=== PATIENT | female | born 1995 | race Caucasian/White ===

== ENCOUNTER 2018-05-10 09:34 | Emergency (ER) | payer OTHER ==
[~2018-05-10] VITALS: Ht 154.9 cm; Wt 94.3 kg
[~2018-05-10 09:34] MED LIST: ALBUTEROL SULF8.5 GM IH; ASPIR-TRIN325 MG PO; BIRTH CONTROL PO; KEFLEX500 MG PO; MOTRIN800 MG PO; NAPROSYN500 MG PO; NOHOMEMEDS; QUASENSE1 EACH PO; VENTOLIN17 GM IH; ZOFRAN ODT4 MG PO; ZOFRAN4 MG PO
[2018-05-10 10:36] LABS: BASOPHIL (%) 0.5 % (0-1); EOSINOPHIL (%) 1.7 % (0-5); EOSINOPHIL COUNT 0.2 K/uL (0-0.3); HEMATOCRIT 41.3 % (36.0-46.0); HEMOGLOBIN 13.9 G/DL (11.9-15.5); IMMATURE GRANULOCYTE (%) 0.3 % (0.0-0.7); LYMPHOCYTE (%) 26.1 % (15-42); LYMPHOCYTE COUNT 2.3 K/uL (1.0-2.8); MCH 28.4 PG (29.0-34.0); MCHC 33.7 G/DL (30.0-36.0); MCV 84.3 FL (83-99); MONOCYTE (%) 5.5 % (3-12); MONOCYTE COUNT 0.5 K/uL (0-0.8); NEUTROPHIL (%) 65.9 % (45-76); NEUTROPHIL COUNT 5.7 K/uL (1.8-6.4); PLATELET COUNT 306 K/uL (156-360); RBC DIS.WIDTH-CV 12.6 % (11.8-14.6); RBC DIS.WIDTH-SD 38.1 % (39-53); WHITE BLOOD COUNT 8.7 K/uL (4.1-10.2)
[2018-05-10 10:48] LABS: ALBUMIN 4.3 g/dL (3.2-4.8); CHLORIDE 106 mEq/L (99-109); POTASSIUM 4.4 mEq/L (3.7-5.4); SODIUM 139 mEq/L (136-147)
[2018-05-10 10:50] LABS: GLUCOSE 105 mg/dL (70-99); TOTAL PROTEIN 7.8 g/dL (6.4-8.3)
[2018-05-10 10:52] LABS: TOTAL BILIRUBIN 0.3 mg/dL (0.0-1.0)
[2018-05-10 10:54] LABS: ALKALINE PHOSPHATASE 78 IU/L (3-129); CREATININE 0.7 mg/dL (0.6-1.3); GFR ESTIMATE (CALCULATED) > 59 mL/min/
[2018-05-10 10:55] LABS: UREA NITROGEN (BUN) 13 mg/dL (9-23)
[2018-05-10 10:56] LABS: AST (GOT) 19 IU/L (2-34)
[2018-05-10 10:57] LABS: ALT (GPT) 26 IU/L (3-49); LIPASE 20 U/L (1.0-51.0)
[2018-05-10 11:04] LABS: QUANTITATIVE HCG < 4.0 MIU/ML
[2018-05-10 11:12] LABS: APPEARANCE SL.HAZY ((CLEAR)); BILIRUBIN NEGATIVE; BLOOD NEGATIVE; COLOR YELLOW ((YELLOW)); GLUCOSE (STRIP) NEGATIVE; KETONES NEGATIVE; LEUKOCYTES TRACE; NITRITE NEGATIVE; PROTEIN (STRIP) NEGATIVE; UROBILINOGEN 0.2 MG/DL (0.2-1.0)
[2018-05-10 11:17] LABS: BACTERIA NONE SEEN /HPF; EPITHELIAL CELLS 2+ /HPF; MUCUS TRACE /LPF; RED BLOOD CELLS 0-5 /HPF (0-5); UCUL ADDED? NO; WHITE BLOOD CELLS 0-5 /HPF (0-5)
[2018-05-10 13:05] LABS: HEMATOCRIT 39.3 % (36.0-46.0); HEMOGLOBIN 13.2 G/DL (11.9-15.5); MCH 28.4 PG (29.0-34.0); MCHC 33.6 G/DL (30.0-36.0); MCV 84.5 FL (83-99); PLATELET COUNT 274 K/uL (156-360); RBC DIS.WIDTH-CV 12.5 % (11.8-14.6); RBC DIS.WIDTH-SD 38.1 % (39-53); RED BLOOD COUNT 4.65 M/uL (3.80-5.20)
[2018-05-10 14:11] VITALS: BP 120/69
== END 2018-05-10 14:12 | disposition home or self-care (01) ==
LOC: EME 09:34
PROVIDERS: Emergency Medicine
DX: N83.201 Unspecified ovarian cyst, right side (principal); J45.909 Unspecified asthma, uncomplicated; Z88.0 Allergy status to penicillin
CPT/HCPCS: 76856; 80053; 81003; 83690; 84702; 85025; 85027; 86850; 86900; 86901; 99281; 99284; J2405; J7040

== ENCOUNTER 2018-05-25 04:49 | Emergency (ER) | payer OTHER ==
[~2018-05-25] VITALS: Ht 154.9 cm; Wt 93.5 kg
[2018-05-25 05:47] LABS: HEMATOCRIT 38.4 % (36.0-46.0); HEMOGLOBIN 12.8 G/DL (11.9-15.5); MCH 28.2 PG (29.0-34.0); MCHC 33.3 G/DL (30.0-36.0); MCV 84.6 FL (83-99); PLATELET COUNT 311 K/uL (156-360); RBC DIS.WIDTH-CV 12.4 % (11.8-14.6); RBC DIS.WIDTH-SD 37.7 % (39-53); RED BLOOD COUNT 4.54 M/uL (3.80-5.20); WHITE BLOOD COUNT 8.4 K/uL (4.1-10.2)
[2018-05-25 06:02] LABS: ALBUMIN 4.1 g/dL (3.2-4.8); CHLORIDE 105 mEq/L (99-109); SODIUM 139 mEq/L (136-147)
[2018-05-25 06:04] LABS: GLUCOSE 105 mg/dL (70-99); TOTAL PROTEIN 7.4 g/dL (6.4-8.3)
[2018-05-25 06:06] LABS: TOTAL BILIRUBIN 0.3 mg/dL (0.0-1.0)
[2018-05-25 06:08] LABS: ALKALINE PHOSPHATASE 73 IU/L (3-129); CREATININE 0.7 mg/dL (0.6-1.3); GFR ESTIMATE (CALCULATED) > 59 mL/min/
[2018-05-25 06:09] LABS: AST (GOT) 17 IU/L (2-34); UREA NITROGEN (BUN) 10 mg/dL (9-23)
[2018-05-25 06:11] LABS: ALT (GPT) 18 IU/L (3-49); LIPASE 21 U/L (1.0-51.0)
[2018-05-25 06:17] LABS: QUANTITATIVE HCG < 4.0 MIU/ML
[2018-05-25] MEDS ORDERED: NORCO 5/3251 TABLET PO (06:53)
[2018-05-25 07:22] LABS: APPEARANCE CLEAR ((CLEAR)); BILIRUBIN NEGATIVE; BLOOD NEGATIVE; COLOR COLORLESS ((YELLOW)); GLUCOSE (STRIP) NEGATIVE; KETONES NEGATIVE; LEUKOCYTES NEGATIVE; NITRITE NEGATIVE; PROTEIN (STRIP) NEGATIVE; SPECIFIC GRAVITY 1.008 (1.000-1.030); UCUL ADDED? NO; UROBILINOGEN 0.2 MG/DL (0.2-1.0)
[2018-05-25 08:35] VITALS: BP 127/85
== END 2018-05-25 08:37 | disposition home or self-care (01) ==
LOC: EME 04:49
PROVIDERS: Emergency Medicine
DX: N83.201 Unspecified ovarian cyst, right side (principal); R10.31 Right lower quadrant pain; J45.909 Unspecified asthma, uncomplicated; Z88.0 Allergy status to penicillin
CPT/HCPCS: 74177; 76856; 80053; 81003; 83690; 84702; 85027; 99281; 99284